=== PATIENT | female | born 1995 | race Caucasian/White ===

== ENCOUNTER 2016-12-14 14:32 | Emergency (ER) | payer SELFPAY ==
[~2016-12-14] VITALS: Ht 165.1 cm; Wt 72.6 kg
--- OUTSIDE RECORDS SUMMARY | 2016-12-14 14:39 | XMS REPORT | Continuity of Care Document ---
Demographics Preferred Language Unknown Marital Status Unknown Nondenominational Affiliation Unknown Race Unknown Ethnic Group Unknown Author Author Formerly [facility] Address Unknown Phone Unavailable Allergies Active Description Code Type Severity Reaction Onset Reported/Identified Relationship to Patient Clinical Status Yes nitrous Drug Allergy 01/25/2012 Medications Problems Date Dx Coded Attending Type Code Diagnosis Diagnosed By 01/25/2012 455.6 HEMORRHOIDS 01/25/2012 V04.89 GARDASIL (HPV) DX Procedures Results Encounters ACCT No. Visit Date/Time Discharge Status Pt. Type Provider Facility Loc./Unit Complaint [id number] 01/25/2012 10:02:00 01/25/2012 23: 59:59 CLS Outpatient
[2016-12-14] MEDS ORDERED: HYDROCODONE (15:10)
[2016-12-14] MEDS ORDERED: CYCL10TA9 PO (15:11)
[2016-12-14] MEDS ORDERED: HYDROcodone/APAP 7.5 MG/325 MG (LORTAB, LORCET PLUS) TABLET PO STA (15:17)
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
--- NOTE | 2016-12-14 16:19 | Diagnostic Imaging Report ---
PROCEDURE: CT lumbar spine without contrast. TECHNIQUE: Multiple contiguous axial images were obtained through the lumbar spine without the use of intravenous contrast. Sagittal and coronal reformations were then performed. INDICATION: Low back pain. FINDINGS: The alignment of the posterior spinal line is satisfactory. The vertebral body heights are preserved. Disc heights are also preserved. There is no pars defect or fracture seen. No compression fracture is noted. There is no osteophyte formation identified. Minimal disc herniation is suggested at L4/L5 and L5/S1 levels. No foraminal stenosis is suggested based on the CT evaluation. IMPRESSION: No fracture seen. Minimal disc herniations in the lower lumbar spine are noted. Dictated by: Dictated on workstation # [id number]
[2016-12-14] MEDS ORDERED: PRD20T PO (16:48)
[2016-12-14 16:55] VITALS: BP 125/84
== END 2016-12-14 16:55 | disposition home or self-care (01) ==
LOC: ER 14:36 → EEVIPCON 14:36 → ER 16:55
DX: M54.16 Radiculopathy, lumbar region (principal); F17.200 Nicotine dependence, unspecified, uncomplicated; Z87.39 Personal history of other diseases of the musculoskeletal system and connective tissue
CPT/HCPCS: 72131; 84703; 99283